=== PATIENT | male | born 1980 | race Hispanic/Latino ===

== ENCOUNTER 2018-10-14 07:22 | Inpatient (IN) | payer BC | END 2018-10-18 16:39 | disposition home or self-care (01) | LOC: EDH 07:22 → EDHIP 10:41 → 3DH 14:59 | PROC: 0D9P0ZZ Drainage of Rectum, Open Approach (ICD-10-PCS; principal; 2018-10-15 07:27) | DX: A41.9 Sepsis, unspecified organism (principal); K61.1 Rectal abscess; N17.9 Acute kidney failure, unspecified; E87.6 Hypokalemia ==

== ENCOUNTER 2021-03-22 10:27 | Day surgery (SDC) | payer BC ==
[2021-03-20 16:24] LABS: EOSINOPHILS % (AUTO) 1.5 % (0.0-8.0); HEMATOCRIT 41.6 % (42-54); LYMPHOCYTES % (AUTO) 32.3 % (21.0-51.0); MEAN CORPUSCULAR HEMOGLOBIN 27.3 pg (27.0-33.0); MEAN CORPUSCULAR HGB CONC 32.9 g/dL (32.0-36.0); MEAN CORPUSCULAR VOLUME 82.9 fL (79-99); MONOCYTES % (AUTO) 9.5 % (3.0-13.0); NEUTROPHILS % (AUTO) 55.4 % (40.0-77.0); PLATELET COUNT (AUTO) 294 K/uL (130-400); RED BLOOD CELL COUNT(AUTO) 5.02 MIL/uL (4.50-6.20); RED CELL DISTRIBUTION WIDTH 13.2 % (11.0-15.5)
[2021-03-20 16:26] LABS: APPEARANCE,URINE Clear (CLEAR); BILIRUBIN,URINE Negative (NEGATIVE); COLOR,URINE Yellow (YELLOW); GLUCOSE, URINE (UA) Negative (NEGATIVE); KETONES,URINE Negative (NEGATIVE); LEUKOCYTE ESTERASE ,URINE Negative (NEGATIVE); NITRATE,URINE Negative (NEGATIVE); OCCULT BLOOD,URINE Negative (NEGATIVE); PH,URINE 6.5 (5.0-8.0); PROTEIN,URINE Negative (NEGATIVE)
[2021-03-20 16:34] LABS: INR 1.05 (0.85-1.15); PROTHROMBIN TIME 11.4 SEC (9.6-11.6)
[2021-03-20 16:35] LABS: PARTIAL THROMBOPLASTIN TIME 27.9 SEC (26.3-35.5)
[2021-03-20 16:39] LABS: ALBUMIN 3.6 g/dL (3.5-5.0); BILIRUBIN,TOTAL 0.5 mg/dL (0.2-1.0); CREATININE 1.1 mg/dL (0.5-1.5); POTASSIUM 3.5 mmol/L (3.5-5.1); TOTAL PROTEIN, SERUM 7.3 g/dL (6.0-8.3)
[2021-03-21 09:12] VITALS: BP 148/97
[2021-03-22] VITALS (18 sets, daily range): BP systolic 112–140; BP diastolic 55–89
[~2021-03-22] VITALS: Ht 167.6 cm; Wt 112.2 kg
[~2021-03-22 10:27] MED LIST: 0.9%NACL 1000ML 1,000 ML IV SCH
[2021-03-22] MEDS ORDERED: CEFAZOLIN SODIUM 1 GM VIAL ONE (10:34)
[2021-03-22] MEDS: CEFAZOLIN SODIUM 1 GM VIAL IVP ONE ×2 (10:40→12:40)
[2021-03-22] MEDS ORDERED: BUPIVACAINE/PF 0.25% 30ML VIAL IJ ONE (11:07)
[2021-03-22] MEDS ORDERED: SUCCINYLCHOLINE 200MG/10ML SYR ONE (12:15)
[2021-03-22] MEDS ORDERED: LIDOCAINE PF 100MG/5ML (2%) SYRINGE 5ML ONE (12:15)
[2021-03-22] MEDS ORDERED: DEXAMETHASONE SOD PHOSPHATE 10MG/ML 1ML VIAL ONE (12:15)
[2021-03-22] MEDS ORDERED: GLYCOPYRROLATE 1 MG/5 ML SYRINGE ONE (12:15)
[2021-03-22] MEDS ORDERED: MIDAZOLAM HCL 1 MG/ML 2ML VIAL ONE (12:16)
[2021-03-22] MEDS ORDERED: PROPOFOL 10 MG/ML 20ML VIAL IV ONE (12:16)
[2021-03-22] MEDS ORDERED: ROCURONIUM 10MG/1ML SYR 10 MG/ML ML ONE ×2 (12:16→14:22)
[2021-03-22] MEDS ORDERED: FENTANYL CITRATE PF 50 MCG/1 ML 2ML VIAL ONE (12:16)
[2021-03-22] MEDS ORDERED: ONDANSETRON 4MG INJ ONE (12:16)
[2021-03-22] MEDS ORDERED: NEOSTIGMINE 5MG/5ML SYR IV ONE (12:16)
[2021-03-22] MEDS ORDERED: MEPERIDINE-PF 25 MG/ML SYG ONE ×2 (14:41→15:59)
[2021-03-22] MEDS ORDERED: SUGAMMADEX SODIUM 200 MG/2 ML VIAL IV ONE (14:44)
== END 2021-03-22 16:50 | disposition home or self-care (01) ==
LOC: DAH 10:27
PROVIDERS: ATTEND Student in an Organized Health Care Education/Training Program
DX: K43.6 Other and unspecified ventral hernia with obstruction, without gangrene (principal); Z20.822 Contact with and (suspected) exposure to COVID-19; E66.01 Morbid (severe) obesity due to excess calories; Z98.890 Other specified postprocedural states; Z79.01 Long term (current) use of anticoagulants; Z79.899 Other long term (current) drug therapy
CPT/HCPCS: 36415; 49653; 71045; 80053; 81003; 85025; 85610; 85730; 87635; A4213; A4215; A4221; A4222; A4223 ×2; A4649 ×3; A4663; A6260; C1769 ×3; C1781; C9803; G0168; J0330; J0690; J1100; J2001; J2175 ×2; J2250; J2405; J2704; J2710; J3010; J3490 ×2; J7030 ×2; J7120; S2900